=== PATIENT | female | born 1935 | race Caucasian/White ===

== ENCOUNTER 2018-09-21 15:14 | Outpatient (CLI) | payer MEDICARE ==
--- NOTE | 2018-09-21 17:02 | CT ---
CT ANGIOGRAM THORAX WITH CONTRAST CT ANGIOGRAM ABDOMEN WITH CONTRAST CT PELVIS WITH CONTRAST: 09/21/18 HISTORY: 83-year-old female with diagnosis of dissection of aorta, unspecified portion of aorta, I71.00. No other history available. TECHNIQUE: Following IV injection of Isovue, arterial bolus chasing technique scan was performed from thoracic i nlet to upper sacrum. The echocardiography technologist then noted that the order requested CT angiogram of the pel vis as well as the chest and abdomen. Therefore, delayed scan was performed through the pelvis. Coronal and sagittal 3D MIP reconstructions. COMPARISON: None. FINDINGS: Right pleural effusion occupies approximately 50% volume of the right hemithoracic cavity, with assoc iated severe atelectasis of the right lower lobe. Smaller left pleural effusion occupies approximatel y 15 to 20% volume of the left hemithoracic cavity, including multiple loculated components, and mult ifocal subsegmental atelectasis. There is an aortic stent graft from the ascending aorta that begins approximately 5 cm superior to t he aortic root, is within the entire aortic arch, and in the descending thoracic aorta to the approxi mately T9-10 level. There has been surgical reimplantation of the left common carotid artery at the r ight medial aspect of the proximal ascending aorta, inferior to the stent graft. There is no stenosis at the reimplantation site. Likewise, the right brachiocephalic artery has been reimplanted in the p roximal right medial surface of the ascending aorta, inferior to the reimplantation site of the left common carotid artery. There is no high grade stenosis of the brachiocephalic artery, proximal portio ns of the bilateral common carotid arteries or the right subclavian artery. However, the proximal aspect of the contralateral left subclavian artery has been replaced by prosthe tic devices with no contrast material visualized within the device. There is contrast material in the left subclavian artery distal to this, perhaps from retrograde flow. There is diffuse fusiform ectasia and aneurysmal dilation of many segments of the aorta with the foll owing measurements: Proximal ascending aorta proximal to the endograft: Approximately 3 x 3 cm. Superior ascending aorta with endograft: Approximately 3.5 x 2.5 cm. Aortic arch: 3.2 x 3.7 cm. Proximal descending thoracic aorta: Approximately 3.4 x 3.5 cm. Lower to mid descending thoracic aorta with endograft: 4 x 3.8 cm. Lower descending thoracic aorta distal to the endograft: 3.4 x 3.7 cm. Thoracoabdominal junction at T12-L1 level: 3.7 x 4 cm. Proximal abdominal aorta at level of celiac artery: 2.9 x 2.9 cm. Proximal abdominal aorta at level of origin of right renal artery (which arises from the anterior asp ect of the aorta): 3.3 x 3.1 cm. Mid abdominal aorta at L2-3 level: 2.7 x 2.2 cm. Distal abdominal aorta at bifurcation: 1.5 x 1.7 cm. The diameters given above are of the contrast filled, patent luminal portions. The diameters to not i nclude the severe mural thickening throughout the aortic arch, with heterogeneously moderately low at tenuation. There is also a small portion of the lower thoracic aorta that has chronic mural thrombus. There is no intimal flap within the aorta at any level. No significant stenosis of the origins of the right renal artery, celiac artery, or superior mesenter ic artery, and no significant stenosis of the bilateral common iliac, external iliac, or internal prudence ac arteries. Atherosclerotic plaque causes moderate stenosis at origin of the left renal artery. Cardiomegaly and small pericardial effusion. Multiple mildly enlarged mediastinal lymph nodes. No hyd ronephrosis. Diffuse mural thickening and mural enhancement of a nondistended gallbladder, nonspecifi c. Liver, bilateral kidneys, pancreas, spleen, and adrenals, demonstrate no major pathology. No free fluid identified within the pelvic cavity. No small bowel dilation. No signs of colonic diverticuliti s. Much of the intrapelvic contents, including much of the bladder, obscured by severe streak artifac t from bilateral metallic total hip replacement hardware. Diffuse mild to moderate anasarca throughout the subcutaneous fat. IMPRESSION: 1. Fusiform aneurysmal dilation of the aorta, including proximal abdominal aorta, aortic arch, a nd especially descending thoracic aorta. 2. Much of the thoracic aorta has been treated with an endograft. 3. No aortic intimal dissection. 4. Diffuse, severe mural thickening of the aortic arch. It is uncertain whether this represents intramural hematoma or excluded component of the aneurysmal lumen that now has chronic thrombus. 5. Large right pleural effusion and small (partially loculated) left pleural effusion. 6. Severe atelectasis of right lower lobe. 7. Cardiomegaly and pericardial effusion. 8. Bilateral total hip replacement arthroplasty. 9. Surgical reimplantation of the origins of the left common carotid artery and brachiocephalic artery. 10. Ligation of proximal aspect of the left subclavian artery, with replacement by prosthetic de vice. POS: [facility]
== END 2018-09-21 15:15 | disposition home or self-care (01) ==
LOC: CT 15:14
PROVIDERS: ATTEND Family Medicine
DX: I71.00 Dissection of unspecified site of aorta (principal); J90 Pleural effusion, not elsewhere classified; J98.11 Atelectasis; I51.7 Cardiomegaly; I31.3 Pericardial effusion (noninflammatory); Z96.643 Presence of artificial hip joint, bilateral; Z98.890 Other specified postprocedural states
CPT/HCPCS: 71275; 82565

== ENCOUNTER 2018-09-22 19:25 | Emergency (ER) | payer MEDICARE, OTHER ==
[2018-09-22 20:40] LABS: Bilirubin Negative (Negative); Blood, Urine Moderate (Negative); Clarity CLOUDY (Clear); Glucose, Urine (Dipstick) Negative (Negative); Leukocyte Large (Negative); Nitrite Negative (Negative); Protein, Urine (Dipstick) 100 mg/dL (Neg-Trace)
[2018-09-22 20:42] LABS: Bacteria/HPF 4+ HPF (None Seen); Hyaline Casts/LPF 0-3 HYALINE CAST LPF (0-3 Hyaline); Pathc Cast-AUWi Flag 0.14 (0-2.49); RBC/HPF GREATER THAN 50-TNTC HPF (0-3); Squamous Epithelial None Seen HPF (0-3)
[2018-09-22 21:57] LABS: #Basophils 0.1 thou/uL (0.0-0.2); #Eosinphils 0.2 thou/uL (0.0-0.7); #Lymphocytes 1.5 thou/uL (1.20-3.40); #Monocytes 0.6 thou/uL (0.11-0.59); #Neutrophils 5.1 thou/uL (1.40-6.50); %Basophils 0.7 % (0.0-1.0); %Eosinophils 2.2 % (0.0-10.0); %Lymphocytes 20.8 % (21.0-51.0); %Monocytes 7.7 % (0.0-10.0); %Neutrophils 68.6 % (42.0-75.0); Hemoglobin 9.8 g/dL (12.0-16.0); Mean Corpuscular Hemoglobin 29.5 pg (27.0-31.0); Mean Corpuscular Volume 95.4 fL (78.0-98.0); Mean Platelet Volume 7.1 fL (7.4-10.4); Platelet Count 396 thou/uL (130-400); RBC Distribution Width 15.8 % (11.5-14.5); White Blood Cell (WBC) Count 7.4 thou/uL (4.8-10.8)
[2018-09-22 22:03] LABS: INR-International Normal Ratio 1.8; Prothrombin Time 20.5 SEC (12.0-14.7)
--- NOTE | 2018-09-22 22:05 | RAD ---
LEFT TIBIA AND FIBULA TWO VIEW 09/22/18 HISTORY: Pain COMPARISON: None. FINDINGS: The bones are demineralized. Mild soft tissue swelling. No acute displaced fracture or malalignment. IMPRESSION: Soft tissue swelling without displaced fracture or malalignment. POS: ANA LILIA
[2018-09-22 22:19] LABS: ALT (SGPT) 11 U/L (8-55); AST (SGOT) 18 U/L (5-34); Albumin 3.3 g/dL (3.4-4.8); Alkaline Phosphatase 111 U/L (40-150); Anion Gap 14 mmol/L (10-20); BUN (Urea Nitrogen) 12 mg/dL (9.8-20.1); Bilirubin, Total 1.2 mg/dL (0.2-1.2); Calc. Creatinine Clearance 0 mL/min (70-130); Carbon Dioxide 30 mmol/L (23-31); Chloride 101 mmol/L (98-107); Estimated GFR-MDRD Greater than 90; Globulin 3.7 g/dL (2.4-3.5); Glucose 100 mg/dL (83-110); Potassium 3.6 mmol/L (3.5-5.1); Sodium 141 mmol/L (136-145)
--- NOTE | 2018-09-22 22:59 | ULT ---
LEFT LOWER EXTREMITY VENOUS DOPPLER 09/22/18 HISTORY: Bruising, swelling, and edema. COMPARISON: None. TECHNIQUE: Real time vitale scale, color doppler with spectral analysis of the left lower extremity venous system was performed. The common femoral, femoral, proximal portions of the greater saphenous and deep femo ral veins as well as the popliteal and posterior tibial veins were interrogated. Normal flow, augmentation, and compression. Mild lower extremity edema. IMPRESSION: No deep venous thrombosis. POS: ANA LILIA
== END 2018-09-23 02:24 | disposition home or self-care (01) ==
LOC: ERS 19:25
DX: N39.0 Urinary tract infection, site not specified (principal); J90 Pleural effusion, not elsewhere classified; I10 Essential (primary) hypertension; Z79.899 Other long term (current) drug therapy; Z79.82 Long term (current) use of aspirin
CPT/HCPCS: 36415; 51701; 80053; 81003; 81015; 85025; 85610; 85730; 87077; 87086; 87186; A4353

== ENCOUNTER 2018-11-09 13:08 | Inpatient (IN) | payer MEDICARE, OTHER ==
[2018-11-09 13:49] LABS: #Eosinphils 0.1 thou/uL (0.0-0.7); #Lymphocytes 1.3 thou/uL (1.20-3.40); #Monocytes 0.5 thou/uL (0.11-0.59); #Neutrophils 4.5 thou/uL (1.40-6.50); %Basophils 0.5 % (0.0-1.0); %Eosinophils 1.5 % (0.0-10.0); %Monocytes 7.8 % (0.0-10.0); %Neutrophils 70.3 % (42.0-75.0); Hemoglobin 10.7 g/dL (12.0-16.0); Mean Corpuscular HGB CONC 30.8 g/dL (32.0-36.0); Mean Corpuscular Hemoglobin 28.6 pg (27.0-31.0); Mean Corpuscular Volume 92.7 fL (78.0-98.0); Mean Platelet Volume 8.5 fL (7.4-10.4); Platelet Count 219 thou/uL (130-400); RBC Distribution Width 17.4 % (11.5-14.5); Red Blood Cell (RBC) Count 3.73 mill/uL (4.20-5.40); White Blood Cell (WBC) Count 6.3 thou/uL (4.8-10.8)
[2018-11-09 14:13] LABS: AST (SGOT) 38 U/L (5-34); Albumin 3.7 g/dL (3.4-4.8); Alkaline Phosphatase 107 U/L (40-150); Anion Gap 14 mmol/L (10-20); BUN (Urea Nitrogen) 22 mg/dL (9.8-20.1); Bilirubin, Total 0.6 mg/dL (0.2-1.2); Calc. Creatinine Clearance 0 mL/min (70-130); Calcium 8.9 mg/dL (7.8-10.44); Carbon Dioxide 23 mmol/L (23-31); Chloride 110 mmol/L (98-107); Estimated GFR-MDRD 67; Globulin 3.4 g/dL (2.4-3.5); Glucose 146 mg/dL (83-110); Potassium 3.6 mmol/L (3.5-5.1); Protein, Total 7.1 g/dL (6.0-8.3); Sodium 143 mmol/L (136-145)
--- NOTE | 2018-11-09 14:16 | RAD ---
AP view chest. HISTORY: Dyspnea. AP view chest demonstrates a large aortic endovascular stent graft. Sternotomy wires seen. Superior sternal plates and screws are in place. Cardiomegaly seen. Pulmonary vascular congestion seen. IMPRESSION: Cardiomegaly.
[2018-11-09 14:28] LABS: ALT (SGPT) 52 U/L (8-55)
[2018-11-09] MEDS ORDERED: Furosemide 20 MG/2 ML VIAL ONE ×2 (14:33→18:48)
[2018-11-09 17:17] LABS: Troponin I 0.026 ng/mL (< 0.028)
[2018-11-09] MEDS ORDERED: Furosemide 20 MG/2 ML VIAL SLOW IVP SCH (18:45)
--- NOTE | 2018-11-09 19:47 | HP ---
CHIEF COMPLAINT: Worsening shortness of breath and weakness. HISTORY OF PRESENT ILLNESS: An 83-year-old female with past medical history significant for hypertension; aortic aneurysm, status post repair; and coronary artery disease, status post stent placement, who was brought in by EMS due to worsening shortness of breath. The patient also reported the patient has been having worsening weakness associated with intermittent confusion and falls. The patient reportedly was found to have aortic aneurysm when she presented to the emergency room here on July 27 and was found to have aortic aneurysm and was subsequently transferred to [facility] in [place], where she had repair of both ascending and descending aortic aneurysms as well as had coronary angio with stent placement. The patient has prolonged hospitalization associated with physical deconditioning and was subsequently discharged to a [facility] where she has been from September 01 up until October 28, when she was discharged to home. Since discharged to home, the patient was seen at [facility] about a week ago for worsening shortness of breath and was diagnosed with congestive heart failure and discharged to home with medication. Due to worsening shortness of breath and confusion as well as falls, the patient was brought in. EMS treated the patient with bronchodilators with improvement. Of note, the patient reportedly had developed mental status change and confusion while in the halfway and this has continued, though has improved, but reportedly got worse in the last few days. She was treated for urinary tract infection at [facility] with IV antibiotics, which was continued at [place]. The patient also had another bout of urinary tract infection while at the halfway for which she was seen by a urologist. The patient denied chest pain, cough, nausea, vomiting, dizziness, abdominal pain, dysuria, hematuria, hematemesis, or change in bowel habit. She reported that the leg swelling has markedly improved. Note that the patient's daughter reported that earlier this morning she was confused, calling family members with inappropriate speech. Mental status is said to have improved since presentation to the hospital. There is no history of change in vision or slurred speech or focal weakness. PAST MEDICAL HISTORY: 1. Aortic aneurysm. 2. Hypertension. 3. Superficial thrombosis of right upper limb. 4. Physical deconditioning. 5. Pleural effusion, status post thoracentesis. 6. Rheumatoid arthritis, on methotrexate. PAST SURGICAL HISTORY: 1. Repair of aortic aneurysm with implants. 2. Bilateral hip and knee replacements. FAMILY HISTORY: Hypertension in mother. SOCIAL HISTORY: The patient now lives with the one of the daughters. Was recently discharged from the [facility] facility about 1 week ago. Denied smoking or alcohol use. ALLERGIES: NO KNOWN DRUG ALLERGIES REPORTED. CURRENT HOME MEDICATIONS: Discharge paperwork from [facility] on November 02, showed the following medications: 1. Aspirin 81 mg p.o. daily. 2. Carvedilol 6.25 mg p.o. b.i.d. 3. Furosemide 20 mg p.o. daily. 4. Losartan 25 mg p.o. daily. 5. Magnesium oxide 400 mg p.o. daily. 6. Acetaminophen 500 mg every 6 hours p.r.n. for pain. 7. Alendronate 70 mg p.o. every 7 days. 8. Folic acid one tablet p.o. daily. 9. Methotrexate 12.5 mg p.o. every 7 days. 10. Potassium chloride one tablet p.o. daily. 11. Zolpidem 5 to 10 mg p.o. daily at night as needed for sleep. Review of discharge paperwork from [facility] showed that the patient also was on; 1. Amiodarone 200 mg p.o. b.i.d. 2. Lipitor 40 mg daily at bedtime. 3. Gabapentin 300 mg every 8 hours. 4. Melatonin 3 mg daily at bedtime for insomnia. 5. Eliquis 5 mg p.o. b.i.d. 6. Restasis emulsion 0.05% to both eyes two times a day. REVIEW OF SYSTEMS: A 12-point review of systems performed was negative other than pertinent positives and negatives included in the History of Present Illness. PHYSICAL EXAMINATION: VITAL SIGNS: On presentation to the emergency room, the patient had the following vitals, blood pressure 175/59, pulse 49, respiratory rate 16, and SpO2 of 99% on room air. Most current vitals showed blood pressure 135/62, pulse 51, respiratory rate 18, temperature 97.8, and SpO2 of 98% on room air. GENERAL: Elderly female, in no obvious distress. Afebrile. Anicteric. Acyanotic. HEENT: Normocephalic, atraumatic. Pupils are equal and reacting to light. Oral mucosa is moist. NECK: Supple, nontender with full range of motion. No JVD appreciated. CARDIOVASCULAR: Regular rhythm and rate with normal heart sounds 1 and 2. Systolic murmur appreciated over the precordium. RESPIRATORY: Fair air entry bilaterally with bibasilar crackles noted. No rhonchi or use of accessory muscles was appreciated. GI: Abdomen is full, soft, nontender, nondistended with normal bowel sounds. EXTREMITIES: Grossly normal looking except left forearm wound with scab. Mild bilateral leg edema noted. No erythema appreciated. NEUROLOGIC: Conscious and alert, oriented x3 with appropriate mental status. The patient moves all extremities. Cranial nerves 2 through 12 are intact. The patient is conversational. Some memory lapses were appreciated. DIAGNOSTIC DATA: CBC showed WBC count of 6.3, hemoglobin of 10.7, MCV of 92.7, and platelets of 219. CMP showed sodium 143, potassium 3.6, chloride 110, CO2 of 23, BUN 22, creatinine 0.82, glucose 146, calcium 8.9, total bilirubin 0.6, AST 38, ALT 52, alkaline phosphatase 107, total protein 7.1, albumin 3.7, and globulin 3.4. Serial troponin performed 3 hours apart was stable at 0.026. BNP was 2811.7. EKG showed sinus bradycardia with rate of 47. T-wave inversion in leads II, III, aVL, and V2 through V6 noted. No obvious ST changes noted. Chest x-ray showed large aortic endovascular stent graft as well as sternotomy wires. Cardiomegaly and pulmonary vascular congestion also were noted. ASSESSMENT: 1. Acute respiratory insufficiency: Due to acute on chronic systolic congestive heart failure. 2. Acute on chronic congestive heart failure. Type of heart dysfunction is unclear at this time. There is no prior echocardiogram in record. 3. Ruptured aortic aneurysm, status post repair. 4. Acute encephalopathy: Etiology is unclear. Urinary tract infection is a concern. The patient is said to be on several medications which may be contributed. Acute myocardial infarction is unlikely with negative serial troponin. 5. Physical deconditioning with recurrent falls. 6. Hypertension: Control is fair with systolic blood pressure ranging from 130 to 170. 7. Possible cardiac arrhythmia. Review of the medical record showed no cardiac arrhythmia, but the patient is supposed to be on amiodarone. Indication is unclear at this time. 8. History of venous thrombosis, on chronic anticoagulation with Eliquis. Review of the chart showed that the patient had acute embolism and thrombosis of superficial vein of right upper extremity. This would not be an indication for chronic anticoagulation. PLAN: 1. We will continue home medications of Coreg at a lower dose given bradycardia as well as losartan. We will, however, increase losartan to 25 mg b.i.d. to get better BP control. 2. We will also start the patient on IV Lasix, given fluid overload and elevated BNP. 3. We will get echocardiogram to assess cardiac function. 4. We will also get medical record from [facility] in [place]. We will also get urinalysis to rule out acute UTI. 5. We will also consult Physical and Occupational Therapy to evaluate and treat the patient. 6. DVT prophylaxis with Lovenox will be provided. 7. Code status is full code. Daughter is the surrogate decision maker. Job ID: [id number]
[2018-11-09 20:47] LABS: Troponin I 0.033 ng/mL (< 0.028)
[2018-11-09] MEDS: Losartan 25 MG TAB PO SCH (21:26)
[2018-11-09] MEDS: Carvedilol 3.125 MG TAB PO SCH (21:26)
[2018-11-09 22:15] LABS: Bilirubin Negative (Negative); Blood, Urine Small (Negative); Clarity TURBID (Clear); Glucose, Urine (Dipstick) Negative (Negative); Leukocyte Negative (Negative); Nitrite Negative (Negative); Protein, Urine (Dipstick) Negative (Neg-Trace); Specific Gravity, Urine 1.008 (1.002-1.036); Urobilinogen 0.2 mg/dL (0.2-1.0); pH, Urine 6.5 (5.0-9.0)
[2018-11-09 22:18] LABS: Bacteria/HPF None Seen HPF (None Seen); Hyaline Casts/LPF 0-3 HYALINE CAST LPF (0-3 Hyaline); Pathc Cast-AUWi Flag 0.13 (0-2.49); RBC/HPF None Seen HPF (0-3); Squamous Epithelial None Seen HPF (0-3); WBC/HPF 0-3 HPF (0-3)
[2018-11-09 22:19] LABS: Urine Culture Reflex No No
[2018-11-10] MEDS: Zolpidem Tartrate 5 MG TAB PO PRN ×2 (00:27→21:16)
[2018-11-10] MEDS: Furosemide 20 MG/2 ML VIAL SLOW IVP SCH ×2 (06:30→14:49)
[2018-11-10 07:11] LABS: #Eosinphils 0.2 thou/uL (0.0-0.7); #Lymphocytes 1.5 thou/uL (1.20-3.40); #Monocytes 0.8 thou/uL (0.11-0.59); #Neutrophils 4.5 thou/uL (1.40-6.50); %Basophils 0.6 % (0.0-1.0); %Eosinophils 2.2 % (0.0-10.0); %Lymphocytes 22.1 % (21.0-51.0); %Monocytes 11.4 % (0.0-10.0); %Neutrophils 63.6 % (42.0-75.0); Hemoglobin 10.6 g/dL (12.0-16.0); Mean Corpuscular HGB CONC 31.6 g/dL (32.0-36.0); Mean Corpuscular Hemoglobin 29.7 pg (27.0-31.0); Mean Corpuscular Volume 94.1 fL (78.0-98.0); Mean Platelet Volume 8.8 fL (7.4-10.4); Platelet Count 210 thou/uL (130-400); RBC Distribution Width 17.5 % (11.5-14.5); Red Blood Cell (RBC) Count 3.57 mill/uL (4.20-5.40)
[2018-11-10 07:35] LABS: ALT (SGPT) 44 U/L (8-55); AST (SGOT) 35 U/L (5-34); Albumin 3.3 g/dL (3.4-4.8); Alkaline Phosphatase 97 U/L (40-150); Anion Gap 12 mmol/L (10-20); BUN (Urea Nitrogen) 23 mg/dL (9.8-20.1); Bilirubin, Total 0.5 mg/dL (0.2-1.2); Calc. Creatinine Clearance 45 mL/min (70-130); Calcium 8.5 mg/dL (7.8-10.44); Carbon Dioxide 26 mmol/L (23-31); Chloride 108 mmol/L (98-107); Estimated GFR-MDRD 62; Globulin 3.3 g/dL (2.4-3.5); Glucose 102 mg/dL (83-110); Magnesium 1.7 mg/dL (1.6-2.6); Potassium 3.2 mmol/L (3.5-5.1); Protein, Total 6.6 g/dL (6.0-8.3); Sodium 143 mmol/L (136-145)
[2018-11-10] MEDS ORDERED: hydrALAZINE 20 MG/ML VIAL SLOW IVP SCH (08:00)
[2018-11-10] MEDS ORDERED: Amiodarone 200 MG TAB PO SCH (09:00)
--- NOTE | 2018-11-10 09:43 | PDOC.PN ---
- Subjective Encounter Start Date: 11/10/18 Encounter Start Time: 09:42 Subjective: Feeling better. -: Denied fever or SOB. - Objective Resuscitation Status - Order Detail: 11/09/18 18:38 Resuscitation Status Routine Resuscitation Status: FULL: Full Resuscitation Vital Signs & Weight: Vital Signs (12 hours) Temp Pulse Resp BP Pulse Ox 11/10/18 08:03 97.9 F 56 L 18 177/76 H 96 11/10/18 03:29 98.6 F 54 L 16 122/59 L 92 L 11/10/18 00:13 92 L 11/09/18 23:45 92 L Weight Weight 124 lb 6.4 oz I&O: 11/09/18 11/10/18 11/11/18 06:59 06:59 06:59 Intake Total 150 Output Total 650 Balance -500 Result Diagrams: 11/10/18 06:14 11/10/18 06:14 Phys Exam - Physical Examination Constitutional: NAD HEENT: PERRLA, moist MMs Neck: no JVD, supple Respiratory: no wheezing, no rales fair air entry bilaterally with some transmitted sound. Cardiovascular: RRR systolic murmur noted Gastrointestinal: soft, non-tender, no distention, positive bowel sounds trace bilateral leg edema Neurological: non-focal, moves all 4 limbs conscious and alert, orientred x 3 Psychiatric: A&O x 3 Dx/Plan (1) Acute on chronic congestive heart failure Code(s): I50.9 - HEART FAILURE, UNSPECIFIED Status: Acute (2) HTN (hypertension) Code(s): I10 - ESSENTIAL (PRIMARY) HYPERTENSION Status: Acute Comment: Type of dysfunction unkown. Awaiting echo (3) Aortic aneurysm Code(s): I71.9 - AORTIC ANEURYSM OF UNSPECIFIED SITE, WITHOUT RUPTURE Status: Acute (4) Physical deconditioning Code(s): R53.81 - OTHER MALAISE Status: Acute - Plan Continue diuretic and antihypertensives. -: Monitor renal function, I/O and electrolytes. -: Awaiting Echo and cardiology input. -: PT/OT eval and treat * .
[2018-11-10] MEDS: Potassium Chloride 20 MEQ TAB PO SCH ×2 (09:45→14:49)
[2018-11-10] MEDS: Magnesium Oxide 400 MG TAB PO SCH ×2 (09:46→21:15)
[2018-11-10] MEDS: Losartan 25 MG TAB PO SCH ×2 (09:46→21:15)
[2018-11-10] MEDS: Apixaban 5 MG TAB PO SCH ×2 (09:46→21:15)
[2018-11-10] MEDS: Carvedilol 3.125 MG TAB PO SCH ×2 (09:46→21:16)
[2018-11-10 12:13] LABS: Troponin I 0.047 ng/mL (< 0.028)
--- NOTE | 2018-11-10 12:42 | PQF ---
CLINICAL DOCUMENTATION IMPROVEMENT CLARIFICATION FORM: ICD-10 Updated PLEASE DO AN ADDENDUM TO THE PROGRESS NOTE WITH ANY DOCUMENTATION UPDATES OR ADDITIONS AND CARRY THROUGH TO DC SUMMARY. THANK YOU. DATE: 11/10/18 ATTN: DR. HOLLAND Please exercise your independent, professional judgment in responding to the clarification form. Clinical indicators are provided on the bottom of this form for your review Please check appropriate box(s): [ x ] Encephalopathy: Type: [ ] Acute [ ] Subacute [ x ] Chronic Etiology: [ ] Hypertensive [ ] Metabolic [ ] Toxic [ ] Hepatic with Coma [ ] Hepatic w/o Coma [ ] Hypoxic [ ] Septic Etiology is unclear. [ ] Drug induced: [ ] Unspecified [ ] in the setting of underlying dementia [ ] Other (please specify) [ ] Transient Alteration of Awareness [ ] Other diagnosis [ ] Unable to determine In addition, please specify: Present on Admission (POA): [ x ] Yes [ ] No [ ] Unable to determine For continuity of documentation, please document condition throughout progress notes and discharge summary. Thank You. 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 All Rights Reserved [email or web address] Office: [phone] [facility]
--- NOTE | 2018-11-10 16:52 | CON ---
DATE OF CONSULTATION: 11/10/2018 REASON FOR CONSULTATION: Bradycardia, QTc prolongation. HISTORY OF PRESENT ILLNESS: Ms. Orozco is an 83-year-old woman, who presented to [facility] on 11/09 due to shortness of breath, confusion, as well as weakness. There was some mention of falls, but when the patient tried to get out of bed, she was too weak to support herself and slid to the ground. Reportedly, she also had some mental status changes with confusion over the past few days, had been progressive. Ms. Orozco was admitted to [facility] at the end of July in 2017 and found to have an aortic aneurysm, for which she was transferred to [facility] in [place], where she underwent both ascending and descending aortic aneurysmal repair. There is also some mention of left heart catheterization with possible stent placement. Records have been requested from [facility], though are not available on the chart at this point for review. Following her hospitalization there, she was discharged on amiodarone and Eliquis and was sent to senior living facility, where she remained until October 28. She was discharged home at that time, but began to have congestive heart failure issues and went to [facility] for CHF exacerbation last week, but was not hospitalized long with that stay. She also endorses that she has had recurrent issues with urinary tract infections. Her urine continues to show a bacteria, but she is asymptomatic and treatment has been deferred unless further symptoms are seen per her urologist. Ms. Orozco is currently feeling fairly well. Her mental status has improved since initial presentation. She has not showing any focal deficits, stroke, or stroke-like symptoms. She is a poor historian as far as her health history goes. She denies any heart racing, palpitations, chest pain, pressure, syncope, near syncope, stroke, or stroke-like symptoms. REVIEW OF SYSTEMS: A 12-point review of systems is conducted, is negative except that listed above in HPI. PAST MEDICAL HISTORY: 1. Aortic aneurysm, status post repair, ascending and descending. 2. Hypertension. 3. Deconditioning and frail status. 4. Pleural effusions, status post thoracentesis. 5. Rheumatoid arthritis, on methotrexate. 6. Bilateral hip and knee replacements. FAMILY HISTORY: Hypertension in mother. SOCIAL HISTORY: Lives with her daughter, one of her daughters recently discharged from SNF approximately 2 weeks ago. Denies alcohol, tobacco, or illicit drug use. ALLERGIES: NO KNOWN DRUG ALLERGIES. HOME MEDICATIONS: 1. Methotrexate weekly 12.5 mg. 2. Losartan potassium 25 mg daily. 3. Fosamax 70 mg weekly. 4. Magnesium 400 mg p.o. daily. 5. Carvedilol 6.25 mg p.o. b.i.d. 6. Simethicone as needed. 7. Potassium chloride 10 mEq daily. 8. Megace 40 mg daily. 9. Zolpidem 5 mg at bedtime. 10. Melatonin as needed. 11. Gabapentin 300 mg p.o. t.i.d. 12. Furosemide 20 mg daily. 13. Restasis per eye b.i.d. 14. Atorvastatin 40 mg at bedtime. 15. Aspirin 81 mg p.o. daily. 16. Apixaban 5 mg p.o. b.i.d. 17. Amiodarone 200 mg p.o. b.i.d. 18. Tylenol No. 3 one to two tablets p.o. q.6 hours p.r.n. pain. PHYSICAL EXAMINATION: VITAL SIGNS: Temperature 97.6, pulse 54, blood pressure 133/61, respirations 18, and oxygen is 96% on 2 L via nasal cannula. GENERAL: The patient is alert and oriented. Speech is clear. Affect is appropriate. She is a poor historian. HEENT: She is normocephalic and atraumatic. Sclerae anicteric. EOMs are intact. Oral mucosa is moist and pink with adequate dentition. NECK: Supple without jugular venous distention. HEART: Rate is slow, but with crisp S1 and S2. PMI is nondisplaced. LUNGS: Clear to auscultation bilaterally. Respirations even and nonlabored. ABDOMEN: Soft and nontender. Hepatojugular reflux is negative. EXTREMITIES: Warm and dry to touch without clubbing, cyanosis, or edema. NEUROLOGIC: Grossly intact and nonfocal. Gait was not assessed, but the patient reports being out of bed multiple times today. DATABASE: WBC 7.0, hemoglobin 10.6, hematocrit 33.6, platelet count 210. Chemistry; potassium 3.2, creatinine 0.88. BNP 1166. Serial troponins are being conducted initially 0.026 continue to climb, highest one is 0.047. Magnesium 1.7. Telemetry and EKGs were all personally reviewed and currently reflect sinus bradycardia with QTc prolongation. QT interval is 604 milliseconds on admitting EKG. IMPRESSION: 1. Bradycardia with QT prolongation, but no ventricular tachycardia. 2. Chronic amiodarone use at moderately high dose, unknown reason for initiation, but likely perioperative management of atrial fibrillation with her hospital stay at [facility]. Need records from [facility] to confirm or deny this. 3. Generalized weakness with mental status changes, possibly secondary to amiodarone use. 4. History of recent aortic aneurysm repair. 5. Oral anticoagulation on Eliquis without bleeding dyscrasias. 6. CHADS-VASc score of greater than or equal to 4 on the basis of advanced age, female gender, and vascular disease. PLAN AND RECOMMENDATIONS: At this point, the most likely story is Ms. Orozco had perioperative atrial fibrillation, undergoing repair of her aortic aneurysm at [facility]. It has been over 3 months since the date of her surgical repair, which is an appropriate time frame to consider discontinuing amiodarone, especially in light of her bradycardia and QT prolongation. I will stop her amiodarone, which will also help improve her heart rate, but we will need to monitor for recurrent arrhythmias and I will see her back as an outpatient followup for potential arrhythmia issues. We will look for the [facility] records, which may provide some clarity as to when and why she was started on amiodarone. Recommend continuing oral anticoagulation with Eliquis. She is not sure when this medication was started or how long she has been on this and truly does not know why she is on this medication. I agree with the plan to check a 2-dimensional echo and recommend medical management optimization of her heart failure. Thank you for allowing me to participate in the care of this patient. Job ID: [id number]
--- NOTE | 2018-11-10 17:59 | CON ---
DATE OF CONSULTATION: 11/10/2018 INDICATION FOR CONSULTATION: An 83-year-old female with congestive heart failure symptoms, history of coronary artery disease, recent bypass surgery and also was found to have on the EKG, prolonged QT. She has had no arrhythmias that we are aware of. No ventricular tachycardia or torsades. At this time, she denied any chest pain. She mainly complains of shortness of breath and that is why she was admitted to the hospital. She has also had some mild lower extremity edema. PAST MEDICAL HISTORY: Significant for aortic aneurysm. She has had a repair apparently. She has history of coronary artery disease. She says she underwent bypass surgery, but may not have bypass. May have had a thoracic aneurysm. We will need to evaluate that. She has had a stent placement. She is having associated weakness and also shortness of breath at home. She has had a repair of both ascending and descending aortic aneurysms and stent placement to the coronary arteries apparently. Do not see any indication that she has had any bypass surgery. She does appear to be somewhat deconditioned obviously and this appears to be maintaining normally, but is somewhat slow. She says she is feeling much better since she is diuresed. She apparently has had some urinary tract infections also. She has been followed by the neurologist. At this time, she denies any chest pain. She mainly complains of shortness of breath. She had no other significant complaints from a cardiac standpoint. Her past medical history is significant for the coronary artery disease with stent placement. She has had superficial thrombosis of right upper extremities. She has also had some local wound on the left extremity after an IV was placed. She has aortic aneurysm repaired, both thoracic and abdominal. History of hypertension. She has had thoracentesis in the past with pleural effusion. She has arthritis. She has also had bilateral hip and knee replacement. She has had a hysterectomy. SOCIAL HISTORY: She is a . She apparently lives with one of her daughters. She was recently in the custodial unit after her surgical repairs. She is now living with a daughter. She has no history of alcohol or tobacco abuse. FAMILY HISTORY: Noncontributory for any early heart disease. ALLERGIES: NONE. MEDICATIONS: Include: 1. Coreg 6.25 mg b.i.d. 2. Aspirin 81 mg a day. 3. Furosemide 20 mg a day. 4. Losartan 20 mg a day. 5. Magnesium oxide 400 mg daily. 6. Tylenol. 7. Alendronate 70 mg once a week. 8. Folic acid once a day. 9. Methotrexate q.7 hours. 10. Potassium 1 tablet daily. 11. Zolpidem. 12. Amiodarone 200 mg b.i.d. 13. Lipitor 40 mg q.p.m. 14. Gabapentin 300 q.8 hours. 15. Melatonin 3 mg q.p.m. 16. Eliquis 5 mg b.i.d. 17. Restasis ophthalmic drops. REVIEW OF SYSTEMS: She mainly complains of shortness of breath and some lower extremity edema. Otherwise, she had no new significant complaints. PHYSICAL EXAMINATION: GENERAL: Reveals an elderly female, who is in no acute distress. She does complain of some back pain. VITAL SIGNS: Show a blood pressure 133/61, heart rates in the 50s. She has a sinus rhythm on the monitor. She is afebrile. Respiratory rate is 18 to 28, O2 saturation is 96%. HEENT: Reveals the head to be normocephalic and atraumatic. Carotid pulses are present. I do not hear any bruits. CHEST: Clear to auscultation at this time. She has a well-healed midline surgical incision. She has abdominal incision also. There were no rales, rhonchi, or wheezing noted. CARDIOVASCULAR: Reveals a regular rhythm. I did not hear any gross murmurs. No heaves or thrills. ABDOMEN: Soft. Positive bowel sounds are present. She has a well-healed surgical incision. EXTREMITIES: Showed no clubbing or cyanosis. Pedal pulses are present. NEUROLOGIC: The patient appears to be relatively intact. She is overall somewhat deconditioned. SKIN: Warm and dry. She does have a healing ulceration of the left forearm. Neurologically, no gross focal deficits are noted. SKIN: Warm and dry otherwise. LABORATORY DATA: Her EKG did show evidence of sinus bradycardia with a long QT, but still within borderline limits for the heart rate. She is bradycardic, which may be due to the amiodarone which also can prolong her QT. I will need to evaluate medicines, maybe we can consider whether or not the gabapentin maybe in combination with amiodarone, maybe prolonging the QT. We could also evaluate for the zolpidem, which may also prolong QT. I will need to investigate that to be certain. Otherwise, she has been asymptomatic. There is no indication she has any arrhythmias. Her hemoglobin is 10.6, WBC of 7, hematocrit 33.6, and platelet count 210. Her chemistry shows potassium of 3.2. Her creatinine is 0.88. Troponin I was indeterminate at 0.026 and then the last set was 0.033, still not indicative of myocardial infarction. BNP was elevated at 2811, compatible with congestive heart failure. This is already decreased after 24 hours down to 1166. IMPRESSION: 1. Congestive heart failure, most likely due to volume overload. This has improved after she has been given diuretics. I would continue with low-dose diuretics at this time. She does not appear to be too volume overloaded. We will need to try to obtain records from [place] or to try to see if she has had any recent echocardiogram. If not, then I would suggest an echocardiogram to be performed. I believe one has already been ordered and we will evaluate that. Otherwise, we will continue to follow her very carefully. 2. Abnormal EKG with borderline to long QT syndrome. She is asymptomatic and there has been no significant arrhythmias noted at this time. We can discuss this issue with the production technician. We will compare with an old EKG. At this time, I would not change any medications at this time. I suspect she did have some atrial fibrillation after surgery in the past and that is why she was placed on the amiodarone. 3. Hypertension, this is under reasonable control. At this time, we will continue the same medications. We will continue to follow the patient with you. 4. Overall deconditioning. She will need to have physical therapy or home health when she is discharged from the hospital. We will be more than happy to continue to follow the patient with you. Job ID: [id number]
[2018-11-10] MEDS: Atorvastatin Calcium 40 MG TAB PO SCH (21:15)
[2018-11-11] MEDS ORDERED: hydrALAZINE 20 MG/ML VIAL SLOW IVP SCH (04:00)
[2018-11-11 05:33] LABS: Albumin 3.6 g/dL (3.4-4.8); Anion Gap 13 mmol/L (10-20); BUN (Urea Nitrogen) 22 mg/dL (9.8-20.1); BUN/Creatinine Ratio 30.14; Calc. Creatinine Clearance 55 mL/min (70-130); Calcium 9.3 mg/dL (7.8-10.44); Carbon Dioxide 24 mmol/L (23-31); Chloride 109 mmol/L (98-107); Estimated GFR-MDRD 77; Glucose 99 mg/dL (83-110); Phosphorus 3.2 mg/dL (2.3-4.7); Potassium 4.2 mmol/L (3.5-5.1); Sodium 142 mmol/L (136-145)
[2018-11-11] MEDS ORDERED: Lorazepam 2 MG/ML VIAL SLOW IVP SCH (05:45)
[2018-11-11] MEDS: Furosemide 20 MG/2 ML VIAL SLOW IVP SCH ×2 (05:50→15:02)
[2018-11-11] MEDS ORDERED: hydrALAZINE 20 MG/ML VIAL SLOW IVP PRN (07:53)
[2018-11-11] MEDS ORDERED: Alendronate Sodium 70 mg Tablet PO SCH (08:30)
[2018-11-11] MEDS ORDERED: Furosemide 20 MG/2 ML VIAL SLOW IVP SCH ×2 (08:30→09:00)
[2018-11-11] MEDS ORDERED: Methotrexate Sodium 2.5 MG TAB PO SCH (08:30)
--- NOTE | 2018-11-11 08:33 | PDOC.PN ---
- Subjective Encounter Start Date: 11/11/18 Encounter Start Time: 08:31 Subjective: Was confused last night associated with hallucination. -: Denied SOB, chest pain, dysuria or fever - Objective Resuscitation Status - Order Detail: 11/09/18 18:38 Resuscitation Status Routine Resuscitation Status: FULL: Full Resuscitation Vital Signs & Weight: Vital Signs (12 hours) Temp Pulse Resp BP BP Pulse Ox 11/11/18 08:04 97.8 F 66 20 136/66 94 L 11/11/18 04:24 65 193/63 H 11/11/18 04:00 98.1 F 61 20 193/85 H 92 L Weight Admit Weight 124 lb 6.4 oz Weight 127 lb 8 oz I&O: 11/10/18 11/11/18 11/12/18 06:59 06:59 06:59 Intake Total 150 980 Output Total 650 1625 Balance -500 -645 Result Diagrams: 11/10/18 06:14 11/11/18 04:47 Phys Exam - Physical Examination Constitutional: NAD HEENT: PERRLA, moist MMs Neck: no JVD, supple, full ROM Respiratory: no wheezing, no rales fair air entry bilaterally Cardiovascular: RRR soft systolic murmur Gastrointestinal: soft, non-tender, no distention, positive bowel sounds trace edema of the legs. Neurological: non-focal, moves all 4 limbs oriented x2 at least. some confusion. Dx/Plan (1) Acute on chronic congestive heart failure Code(s): I50.9 - HEART FAILURE, UNSPECIFIED Status: Acute Qualifiers: Heart failure type: diastolic Qualified Code(s): I50.33 - Acute on chronic diastolic (congestive) heart failure (2) HTN (hypertension) Code(s): I10 - ESSENTIAL (PRIMARY) HYPERTENSION Status: Acute Comment: Control suboptimal. (3) Aortic aneurysm Code(s): I71.9 - AORTIC ANEURYSM OF UNSPECIFIED SITE, WITHOUT RUPTURE Status: Acute (4) Physical deconditioning Code(s): R53.81 - OTHER MALAISE Status: Acute (5) Acute encephalopathy Code(s): G93.40 - ENCEPHALOPATHY, UNSPECIFIED Status: Acute Comment: Etiology unclear. Most likely sundowning. UA unremarkable. Acute CVA is a concern (6) Aortic regurgitation Code(s): I35.1 - NONRHEUMATIC AORTIC (VALVE) INSUFFICIENCY Status: Acute (7) Protein-calorie malnutrition, moderate Code(s): E44.0 - MODERATE PROTEIN-CALORIE MALNUTRITION Status: Acute - Plan Increase losartan to 50 bid. start prn IV hydralazine for acute BP elevatio -: Get CT brain -: Continue diuretic -: Start oral dietary supplement -: Awaiting medical record from [facility]. * .
--- NOTE | 2018-11-11 08:35 | CT ---
Exam: CT brain PROVIDED CLINICAL HISTORY: Mental status change COMPARISON: None FINDINGS: The ventricular system is normal in size and morphology. No evidence for intracranial hemorrhage or mass effect. The extracranial soft tissues and osseous structures demonstrate an unremarkable CT appearance. Chronic microvascular ischemic changes are noted involving the cerebral white matter. IMPRESSION: No evidence for intracranial hemorrhage or mass effect.
[2018-11-11] MEDS: Apixaban 5 MG TAB PO SCH ×2 (10:22→21:48)
[2018-11-11] MEDS: Folic Acid 1 MG TAB PO SCH (10:22)
[2018-11-11] MEDS: Carvedilol 3.125 MG TAB PO SCH ×2 (10:22→21:48)
[2018-11-11] MEDS: Magnesium Oxide 400 MG TAB PO SCH ×2 (10:22→21:49)
[2018-11-11] MEDS: Losartan 25 MG TAB PO SCH ×2 (10:22→21:49)
[2018-11-11] MEDS: Megestrol Acetate 40 MG TAB PO SCH (11:33)
--- NOTE | 2018-11-11 13:41 | PDOC.CTH ---
Cardiology Progress Note - Subjective The pt seen and examined. No overnight events. No cardiac complaints. - Objective Vital Signs Temp Pulse Pulse Pulse Resp BP BP 11/11/18 11:35 97.8 F 64 20 11/11/18 11:04 60 58 L 181/76 H 11/11/18 08:04 97.8 F 66 20 11/11/18 04:24 65 193/63 H 11/11/18 04:00 98.1 F 61 20 BP BP Pulse Ox Pulse Ox 11/11/18 11:35 124/58 L 95 11/11/18 11:04 126/58 L 97 11/11/18 08:04 136/66 94 L 11/11/18 04:24 11/11/18 04:00 193/85 H 92 L Admit Weight 124 lb 6.4 oz Weight 127 lb 8 oz 11/10/18 11/11/18 11/12/18 06:59 06:59 06:59 Intake Total 150 980 Output Total 650 1625 Balance -500 -645 - Physical Examination Neck: no JVD present Lungs: other: (diminished at bases) Heart: RRR Abdomen: soft Extremities: other: (No edema) - Telemetry Telemetry Rhythm: SR - Labs Result Diagrams: 11/10/18 06:14 11/11/18 04:47 Troponin/CKMB Troponin I 0.047 ng/mL (< 0.028) H 11/10/18 06:14 - Assessment/Plan 1. Acute on Chronic Diastolic HF - stable with Lasix, bblocker, and ARB 2. Prolong QT - Amiodarone was stopped; cont. to monitor on tele 3. HTN - stable 4. Post-op Afib - remains in SB/SR; Off Amiodarone 2/2 QT prolongation; cont. Eliquis 5. S/p ascending and descending aortic aneurysm repair in 08/2018 - waiting for med report from [facility]. MAR reviewed Pt. seen and eval. by me. I agree with the A/P by the FRUIT RAISER. Appreciate input by EP. Pt. seems confused this PM. RRR,chest clear. gjm Review of Systems - Review of Systems Constitutional: reports: weakness EENTM: reports: no symptoms reported Respiratory: reports: no symptoms reported Cardiac (ROS): reports: no symptoms reported ABD/GI: reports: no symptoms reported : reports: no symptoms reported Musculoskeletal: reports: no symptoms reported Skin: reports: no symptoms reported
[2018-11-11] MEDS: Atorvastatin Calcium 40 MG TAB PO SCH (21:48)
[2018-11-11] MEDS: Melatonin 3 MG TAB PO PRN (21:49)
[2018-11-12] MEDS: Furosemide 20 MG/2 ML VIAL SLOW IVP SCH (05:43)
[2018-11-12 05:54] LABS: Anion Gap 17 mmol/L (10-20); BUN (Urea Nitrogen) 29 mg/dL (9.8-20.1); BUN/Creatinine Ratio 32.58; Calc. Creatinine Clearance 44 mL/min (70-130); Calcium 9.7 mg/dL (7.8-10.44); Carbon Dioxide 23 mmol/L (23-31); Chloride 105 mmol/L (98-107); Estimated GFR-MDRD 61; Glucose 103 mg/dL (83-110); Phosphorus 4.8 mg/dL (2.3-4.7); Sodium 141 mmol/L (136-145)
[2018-11-12] MEDS ORDERED: Sodium Chloride 0.9% 10 ML ONE (07:25)
[2018-11-12] MEDS: Folic Acid 1 MG TAB PO SCH (09:22)
[2018-11-12] MEDS: Magnesium Oxide 400 MG TAB PO SCH ×2 (09:22→20:55)
[2018-11-12] MEDS: Megestrol Acetate 40 MG TAB PO SCH (09:22)
[2018-11-12] MEDS: Losartan 25 MG TAB PO SCH ×2 (09:22→20:54)
[2018-11-12] MEDS: Carvedilol 3.125 MG TAB PO SCH ×2 (09:22→20:55)
[2018-11-12] MEDS: Apixaban 5 MG TAB PO SCH ×2 (09:22→20:54)
--- NOTE | 2018-11-12 12:21 | PDOC.PN ---
- Subjective Encounter Start Date: 11/12/18 Encounter Start Time: 18:49 Subjective: Seen and examined. Complained of lack of sleep last night. -: Ambien was discontinued due to confusion. More appropriate today - Objective Resuscitation Status - Order Detail: 11/09/18 18:38 Resuscitation Status Routine Resuscitation Status: FULL: Full Resuscitation Vital Signs & Weight: Vital Signs (12 hours) Temp Pulse Resp BP Pulse Ox 11/12/18 08:58 98.2 F 68 18 142/65 H 95 11/12/18 04:00 97.5 F L 63 20 131/61 96 Weight Admit Weight 124 lb 6.4 oz Weight 123 lb 12.8 oz I&O: 11/11/18 11/12/18 11/13/18 06:59 06:59 06:59 Intake Total 980 960 Output Total 1625 1580 Balance -645 -620 Result Diagrams: 11/10/18 06:14 11/12/18 05:00 Phys Exam - Physical Examination Constitutional: NAD thin elderly female in no distress HEENT: PERRLA, moist MMs Neck: no JVD, supple Respiratory: no wheezing, no rales, no rhonchi, clear to auscultation bilateral Cardiovascular: RRR Gastrointestinal: soft, non-tender, no distention, positive bowel sounds Musculoskeletal: no edema, pulses present Neurological: non-focal, moves all 4 limbs conscious and alert, oriented x3. Memory lapses noted Dx/Plan (1) Acute on chronic congestive heart failure Code(s): I50.9 - HEART FAILURE, UNSPECIFIED Status: Acute Qualifiers: Heart failure type: diastolic Qualified Code(s): I50.33 - Acute on chronic diastolic (congestive) heart failure (2) HTN (hypertension) Code(s): I10 - ESSENTIAL (PRIMARY) HYPERTENSION Status: Acute Comment: Control suboptimal. (3) Aortic aneurysm Code(s): I71.9 - AORTIC ANEURYSM OF UNSPECIFIED SITE, WITHOUT RUPTURE Status: Acute (4) Physical deconditioning Code(s): R53.81 - OTHER MALAISE Status: Acute (5) Acute encephalopathy Code(s): G93.40 - ENCEPHALOPATHY, UNSPECIFIED Status: Acute Comment: Etiology unclear. Acute/subacute CVA ruled out with CT head. Most likely due to ambien superimposed on sundowning and mild dementia (6) Aortic regurgitation Code(s): I35.1 - NONRHEUMATIC AORTIC (VALVE) INSUFFICIENCY Status: Acute (7) Protein-calorie malnutrition, moderate Code(s): E44.0 - MODERATE PROTEIN-CALORIE MALNUTRITION Status: Acute (8) Rheumatoid arthritis Code(s): M06.9 - RHEUMATOID ARTHRITIS, UNSPECIFIED Status: Acute (9) Osteoporosis Code(s): M81.0 - AGE-RELATED OSTEOPOROSIS W/O CURRENT PATHOLOGICAL FRACTURE Status: Acute - Plan change lasix to oral. -: Start melatonin for sleep. -: continue losartan and coreg for BP -: PT/OT to continue. anticipipate Home with Home health or SNF -: Case mgt consulted. Awaiting medical record from [facility] * .
--- NOTE | 2018-11-12 17:13 | PDOC.CTH ---
Cardiology Progress Note - Subjective The pt seen and examined. No overnight events. No cardiac complaints. - Objective Vital Signs Temp Pulse Resp BP Pulse Ox 11/12/18 16:31 98.5 F 68 18 144/67 H 96 11/12/18 12:38 98.2 F 69 18 164/75 H 95 11/12/18 08:58 98.2 F 68 18 142/65 H 95 Admit Weight 124 lb 6.4 oz Weight 123 lb 12.8 oz 11/11/18 11/12/18 11/13/18 06:59 06:59 06:59 Intake Total 980 960 Output Total 1625 1580 Balance -975 -178 - Physical Examination General/Neuro: other: (confused) Lungs: CTA (diminished at bases, Lt>Rt) Heart: RRR Abdomen: soft Extremities: other: (No edema) - Telemetry Telemetry Rhythm: SR - Labs Result Diagrams: 11/10/18 06:14 11/12/18 05:00 Troponin/CKMB Troponin I 0.047 ng/mL (< 0.028) H 11/10/18 06:14 - Assessment/Plan 1. Acute on Chronic Diastolic HF - stable with bblocker, ARB, and Lasix, which will be changed to PO 40mg qd from tomorrow 2. Prolong QT - Amiodarone was stopped; cont. to monitor on tele 3. HTN - stable 4. Post-op Afib - remains in SB/SR; Off Amiodarone 2/2 QT prolongation; cont. Eliquis 5. S/p ascending and descending aortic aneurysm repair in 08/2018 - waiting for med report from [facility]. MAR reviewed Pt. seen and eval. by me. I agree with the A/P by the CLINIC MGR. Overall deconditioned. RRR. Review of Systems - Review of Systems Constitutional: reports: no symptoms reported EENTM: reports: no symptoms reported Respiratory: reports: no symptoms reported Cardiac (ROS): reports: no symptoms reported ABD/GI: reports: no symptoms reported : reports: no symptoms reported Musculoskeletal: reports: no symptoms reported
[2018-11-12] MEDS: Atorvastatin Calcium 40 MG TAB PO SCH (20:54)
[2018-11-12] MEDS: Melatonin 3 MG TAB PO PRN (20:55)
[2018-11-13 07:00] LABS: #Eosinphils 0.1 thou/uL (0.0-0.7); #Lymphocytes 1.8 thou/uL (1.20-3.40); #Monocytes 0.7 thou/uL (0.11-0.59); #Neutrophils 5.4 thou/uL (1.40-6.50); %Basophils 0.5 % (0.0-1.0); %Eosinophils 1.1 % (0.0-10.0); %Lymphocytes 21.9 % (21.0-51.0); %Monocytes 8.8 % (0.0-10.0); %Neutrophils 67.7 % (42.0-75.0); Hemoglobin 12.4 g/dL (12.0-16.0); Mean Corpuscular HGB CONC 31.2 g/dL (32.0-36.0); Mean Corpuscular Hemoglobin 29.5 pg (27.0-31.0); Mean Corpuscular Volume 94.5 fL (78.0-98.0); Mean Platelet Volume 8.6 fL (7.4-10.4); Platelet Count 248 thou/uL (130-400); RBC Distribution Width 17.3 % (11.5-14.5); Red Blood Cell (RBC) Count 4.21 mill/uL (4.20-5.40)
[2018-11-13 07:07] LABS: Albumin 3.5 g/dL (3.4-4.8); Anion Gap 12 mmol/L (10-20); BUN (Urea Nitrogen) 35 mg/dL (9.8-20.1); BUN/Creatinine Ratio 38.04; Calc. Creatinine Clearance 42 mL/min (70-130); Carbon Dioxide 27 mmol/L (23-31); Chloride 105 mmol/L (98-107); Estimated GFR-MDRD 59; Glucose 103 mg/dL (83-110); Potassium 3.9 mmol/L (3.5-5.1); Sodium 140 mmol/L (136-145)
[2018-11-13] MEDS: Furosemide 40 MG TAB PO SCH (07:36)
[2018-11-13] MEDS: Losartan 25 MG TAB PO SCH ×2 (08:47→20:58)
[2018-11-13] MEDS: Apixaban 5 MG TAB PO SCH ×2 (08:47→20:58)
[2018-11-13] MEDS: Folic Acid 1 MG TAB PO SCH (08:47)
[2018-11-13] MEDS: Magnesium Oxide 400 MG TAB PO SCH ×2 (08:47→20:58)
[2018-11-13] MEDS: Carvedilol 3.125 MG TAB PO SCH ×2 (08:47→20:58)
[2018-11-13] MEDS: Megestrol Acetate 40 MG TAB PO SCH (08:51)
--- NOTE | 2018-11-13 12:49 | PDOC.CTH ---
Cardiology Progress Note - Subjective The pt seen and examined. No overnight events. No cardiac complaints. More alerted this AM. - Objective Vital Signs Temp Pulse Resp BP Pulse Ox 11/13/18 11:43 97.5 F L 69 17 117/57 L 93 L 11/13/18 07:29 98.1 F 63 18 164/71 H 95 11/13/18 04:00 97.2 F L 65 18 113/55 L 95 Admit Weight 124 lb 6.4 oz Weight 121 lb 11.2 oz 11/12/18 11/13/18 11/14/18 06:59 06:59 06:59 Intake Total 960 650 Output Total 1580 1440 Balance -620 -790 - Physical Examination General/Neuro: alert & oriented x3 Neck: no JVD present Lungs: CTA (diminished at bases) Heart: RRR Abdomen: soft Extremities: other: (No edema) - Telemetry Telemetry Rhythm: SR - Labs Result Diagrams: 11/13/18 06:37 11/14/18 05:25 Troponin/CKMB Troponin I 0.047 ng/mL (< 0.028) H 11/10/18 06:14 - Assessment/Plan 1. Acute on Chronic Diastolic HF - stable with bblocker, ARB, and Lasix, which will be changed to PO 40mg qd from tomorrow 2. Prolong QT - Amiodarone was stopped; cont. to monitor on tele 3. HTN - stable 4. Post-op Afib - remains in SB/SR; Off Amiodarone 2/2 QT prolongation; cont. Eliquis 5. S/p ascending and descending aortic aneurysm repair in 08/2018 - waiting for med report from [facility]. MAR reviewed Pt. seen and eval. by me. I agree with the A/P by the OPTICAL INSTRUMENT INSPECTOR. Overall deconditioned. RRR. Family discussing placement. gjm Review of Systems - Review of Systems Constitutional: reports: no symptoms reported EENTM: reports: no symptoms reported Respiratory: reports: no symptoms reported Cardiac (ROS): reports: no symptoms reported ABD/GI: reports: no symptoms reported : reports: no symptoms reported Musculoskeletal: reports: no symptoms reported
[2018-11-13] MEDS: Acetaminophen 325 MG TAB PO PRN ×2 (14:45→20:58)
--- NOTE | 2018-11-13 15:52 | PDOC.PN ---
- Subjective Encounter Start Date: 11/13/18 Encounter Start Time: 08:50 Subjective: Patient seen and examined. -: Slept well last night. -: no chest pain or fever. - Objective Resuscitation Status - Order Detail: 11/09/18 18:38 Resuscitation Status Routine Resuscitation Status: FULL: Full Resuscitation Vital Signs & Weight: Vital Signs (12 hours) Temp Pulse Pulse Pulse Resp BP BP 11/13/18 15:26 97.4 F L 60 16 11/13/18 13:54 60 65 135/64 134/60 11/13/18 11:43 97.5 F L 69 17 11/13/18 07:29 98.1 F 63 18 11/13/18 04:00 97.2 F L 65 18 BP Pulse Ox 11/13/18 15:26 92/54 L 94 L 11/13/18 13:54 11/13/18 11:43 117/57 L 93 L 11/13/18 07:29 164/71 H 95 11/13/18 04:00 113/55 L 95 Weight Admit Weight 124 lb 6.4 oz Weight 121 lb 11.2 oz I&O: 11/12/18 11/13/18 11/14/18 06:59 06:59 06:59 Intake Total 960 650 Output Total 1580 1440 Balance -620 -790 Result Diagrams: 11/13/18 06:37 11/13/18 06:37 Phys Exam - Physical Examination Constitutional: NAD HEENT: PERRLA, moist MMs Neck: no JVD, supple Respiratory: no wheezing, no rales, no rhonchi Cardiovascular: RRR Gastrointestinal: soft, non-tender, no distention, positive bowel sounds Musculoskeletal: no edema, pulses present Neurological: non-focal, moves all 4 limbs awake and conversation. memory lapses noted Dx/Plan (1) Acute on chronic congestive heart failure Code(s): I50.9 - HEART FAILURE, UNSPECIFIED Status: Acute Qualifiers: Heart failure type: diastolic Qualified Code(s): I50.33 - Acute on chronic diastolic (congestive) heart failure (2) HTN (hypertension) Code(s): I10 - ESSENTIAL (PRIMARY) HYPERTENSION Status: Acute Comment: Control suboptimal. (3) Aortic aneurysm Code(s): I71.9 - AORTIC ANEURYSM OF UNSPECIFIED SITE, WITHOUT RUPTURE Status: Acute (4) Physical deconditioning Code(s): R53.81 - OTHER MALAISE Status: Acute (5) Acute encephalopathy Code(s): G93.40 - ENCEPHALOPATHY, UNSPECIFIED Status: Acute Comment: Etiology unclear. Acute/subacute CVA ruled out with CT head. Most likely due to ambien superimposed on sundowning and mild dementia (6) Aortic regurgitation Code(s): I35.1 - NONRHEUMATIC AORTIC (VALVE) INSUFFICIENCY Status: Acute (7) Protein-calorie malnutrition, moderate Code(s): E44.0 - MODERATE PROTEIN-CALORIE MALNUTRITION Status: Acute (8) Rheumatoid arthritis Code(s): M06.9 - RHEUMATOID ARTHRITIS, UNSPECIFIED Status: Acute (9) Osteoporosis Code(s): M81.0 - AGE-RELATED OSTEOPOROSIS W/O CURRENT PATHOLOGICAL FRACTURE Status: Acute (10) Prolonged Q-T interval on ECG Code(s): R94.31 - ABNORMAL ELECTROCARDIOGRAM [ECG] [EKG] Status: Acute Comment: Patient was on amiodarone for unclear indication. Discontinued by cardiology - Plan Decrease lasicx to 40 daily. -: Continue other medication. -: Met patient daughters about patient condition and care plan. -: Discharge options were also discontinued including home health and SNF -: increase melatonin to 6 mg prn hs. Follow renal function * .
[2018-11-13] MEDS: Atorvastatin Calcium 40 MG TAB PO SCH (20:58)
[2018-11-13] MEDS: Melatonin 3 MG TAB PO PRN (21:06)
[2018-11-14 06:40] LABS: Albumin 3.4 g/dL (3.4-4.8); Anion Gap 14 mmol/L (10-20); BUN (Urea Nitrogen) 40 mg/dL (9.8-20.1); BUN/Creatinine Ratio 43.01; Calc. Creatinine Clearance 42 mL/min (70-130); Calcium 9.1 mg/dL (7.8-10.44); Carbon Dioxide 26 mmol/L (23-31); Chloride 104 mmol/L (98-107); Estimated GFR-MDRD 58; Glucose 94 mg/dL (83-110); Phosphorus 3.8 mg/dL (2.3-4.7); Potassium 3.6 mmol/L (3.5-5.1); Sodium 140 mmol/L (136-145)
[2018-11-14] MEDS: Apixaban 5 MG TAB PO SCH ×2 (10:23→10:24)
[2018-11-14] MEDS: Furosemide 40 MG TAB PO SCH (10:23)
[2018-11-14] MEDS: Magnesium Oxide 400 MG TAB PO SCH ×2 (10:24→20:53)
[2018-11-14] MEDS: Folic Acid 1 MG TAB PO SCH (10:24)
[2018-11-14] MEDS: Megestrol Acetate 40 MG TAB PO SCH (10:24)
[2018-11-14] MEDS: Losartan 25 MG TAB PO SCH ×2 (10:24→20:53)
[2018-11-14] MEDS: Carvedilol 3.125 MG TAB PO SCH ×2 (10:31→20:53)
[2018-11-14] MEDS: Acetaminophen 325 MG TAB PO PRN (12:46)
--- NOTE | 2018-11-14 14:26 | PDOC.CTH ---
Cardiology Progress Note - Subjective The pt seen and examined. No overnight events. No cardiac complaints. - Objective Vital Signs Temp Pulse Pulse Pulse Resp BP BP 11/14/18 11:40 97.5 F L 55 L 17 11/14/18 10:20 64 56 L 139/64 136/60 11/14/18 07:43 97.2 F L 63 17 11/14/18 04:00 97.7 F 58 L 16 BP Pulse Ox 11/14/18 11:40 100/55 L 98 11/14/18 10:20 11/14/18 07:43 140/63 97 11/14/18 04:00 122/58 L 96 Admit Weight 124 lb 6.4 oz Weight 123 lb 14.4 oz 11/13/18 11/14/18 11/15/18 06:59 06:59 06:59 Intake Total 650 920 Output Total 1440 500 Balance -790 420 - Physical Examination General/Neuro: alert & oriented x3 Neck: no JVD present Lungs: CTA (diminished at bases) Heart: RRR Abdomen: soft Extremities: other: (No edema) - Telemetry Telemetry Rhythm: SR - Labs Result Diagrams: 11/15/18 06:33 11/15/18 06:33 Troponin/CKMB Troponin I 0.047 ng/mL (< 0.028) H 11/10/18 06:14 - Assessment/Plan 1. Acute on Chronic Diastolic HF - stable with bblocker, ARB, and Lasix PO; 2. Prolong QT - Amiodarone was stopped; cont. to monitor on tele 3. HTN - stable 4. Post-op Afib - remains in SB/SR; Off Amiodarone 2/2 QT prolongation; cont. Eliquis 5. S/p ascending and descending aortic aneurysm repair in 08/2018 - waiting for med report from [facility]. MAR reviewed Pt. seen and evcal. by me. I agree with the A/P by the CAREER DEVELOPMENT COUNSELOR. Chest clear. RRR. Still maintaining NSR off amiodarone ( this was held due to prolonged QT) .Probable transfer to [place] or assisted in next 1-2 days. Review of Systems - Review of Systems Constitutional: reports: no symptoms reported EENTM: reports: no symptoms reported Respiratory: reports: no symptoms reported Cardiac (ROS): reports: no symptoms reported ABD/GI: reports: no symptoms reported : reports: no symptoms reported Musculoskeletal: reports: no symptoms reported
--- NOTE | 2018-11-14 14:32 | PDOC.PN ---
- Subjective Encounter Start Date: 11/14/18 Encounter Start Time: 09:30 Subjective: No new problem -: Denied SOB, fever or cough. -: Still with some confusion. - Objective Resuscitation Status - Order Detail: 11/09/18 18:38 Resuscitation Status Routine Resuscitation Status: FULL: Full Resuscitation Vital Signs & Weight: Vital Signs (12 hours) Temp Pulse Pulse Pulse Resp BP BP 11/14/18 11:40 97.5 F L 55 L 17 11/14/18 10:20 64 56 L 139/64 136/60 11/14/18 07:43 97.2 F L 63 17 11/14/18 04:00 97.7 F 58 L 16 BP Pulse Ox 11/14/18 11:40 100/55 L 98 11/14/18 10:20 11/14/18 07:43 140/63 97 11/14/18 04:00 122/58 L 96 Weight Admit Weight 124 lb 6.4 oz Weight 123 lb 14.4 oz I&O: 11/13/18 11/14/18 11/15/18 06:59 06:59 06:59 Intake Total 650 920 Output Total 1440 500 Balance -790 420 Result Diagrams: 11/13/18 06:37 11/14/18 05:25 Phys Exam - Physical Examination Constitutional: NAD HEENT: PERRLA, moist MMs Neck: no JVD, supple Respiratory: no wheezing, no rales, no rhonchi Cardiovascular: RRR soft systolic murmur noted Gastrointestinal: soft, non-tender, no distention, positive bowel sounds Musculoskeletal: no edema, pulses present Neurological: non-focal, moves all 4 limbs Awake and oriented x3 but with some memory lapses and confusion Dx/Plan (1) Acute on chronic congestive heart failure Code(s): I50.9 - HEART FAILURE, UNSPECIFIED Status: Acute Qualifiers: Heart failure type: diastolic Qualified Code(s): I50.33 - Acute on chronic diastolic (congestive) heart failure (2) HTN (hypertension) Code(s): I10 - ESSENTIAL (PRIMARY) HYPERTENSION Status: Acute Comment: Control has improved with medication adjustmemnt (3) Aortic aneurysm Code(s): I71.9 - AORTIC ANEURYSM OF UNSPECIFIED SITE, WITHOUT RUPTURE Status: Acute (4) Physical deconditioning Code(s): R53.81 - OTHER MALAISE Status: Acute (5) Acute encephalopathy Code(s): G93.40 - ENCEPHALOPATHY, UNSPECIFIED Status: Acute Comment: Etiology unclear. Acute/subacute CVA ruled out with CT head. Most likely due to ambien superimposed on sundowning and mild dementia (6) Aortic regurgitation Code(s): I35.1 - NONRHEUMATIC AORTIC (VALVE) INSUFFICIENCY Status: Acute (7) Protein-calorie malnutrition, moderate Code(s): E44.0 - MODERATE PROTEIN-CALORIE MALNUTRITION Status: Acute (8) Rheumatoid arthritis Code(s): M06.9 - RHEUMATOID ARTHRITIS, UNSPECIFIED Status: Acute (9) Osteoporosis Code(s): M81.0 - AGE-RELATED OSTEOPOROSIS W/O CURRENT PATHOLOGICAL FRACTURE Status: Acute (10) Prolonged Q-T interval on ECG Code(s): R94.31 - ABNORMAL ELECTROCARDIOGRAM [ECG] [EKG] Status: Acute Comment: Patient was on amiodarone for unclear indication. Discontinued by cardiology - Plan Continue current medications. -: Awaiting medical record from [facility]. -: Awaiting SNF placement. -: Continue PT/OT. Need for complaince with PT/OT discussed with patient/rela -: Continue oral supplement * .
[2018-11-14] MEDS: Atorvastatin Calcium 40 MG TAB PO SCH (20:52)
[2018-11-14] MEDS: Melatonin 3 MG TAB PO PRN (20:53)
[2018-11-14] MEDS ORDERED: Apixaban 5 MG TAB PO SCH (21:00)
[2018-11-15 07:06] LABS: Hemoglobin 12.2 g/dL (12.0-16.0); Platelet Count 235 thou/uL (130-400)
[2018-11-15 07:28] LABS: Albumin 3.3 g/dL (3.4-4.8); Anion Gap 10 mmol/L (10-20); BUN (Urea Nitrogen) 39 mg/dL (9.8-20.1); BUN/Creatinine Ratio 44.83; Calc. Creatinine Clearance 45 mL/min (70-130); Calcium 8.8 mg/dL (7.8-10.44); Carbon Dioxide 30 mmol/L (23-31); Chloride 104 mmol/L (98-107); Estimated GFR-MDRD 62; Glucose 94 mg/dL (83-110); Phosphorus 3.6 mg/dL (2.3-4.7); Potassium 3.7 mmol/L (3.5-5.1); Sodium 140 mmol/L (136-145)
--- NOTE | 2018-11-15 08:57 | PDOC.CTH ---
Cardiology Progress Note - Subjective The pt seen and examined. No overnight events. No cardiac complaints. - Objective Vital Signs Temp Pulse Resp BP Pulse Ox 11/15/18 03:45 98.3 F 57 L 18 113/54 L 97 11/14/18 23:35 98.4 F 55 L 16 127/56 L 97 Admit Weight 124 lb 6.4 oz Weight 123 lb 14.4 oz 11/14/18 11/15/18 11/16/18 06:59 06:59 06:59 Intake Total 920 1160 Output Total 500 600 Balance 420 560 - Physical Examination General/Neuro: other: (intermittent confusion) Lungs: CTA (diminished at bases) Heart: RRR Abdomen: soft Extremities: other: (No edema) - Telemetry Telemetry Rhythm: SR - Labs Result Diagrams: 11/15/18 06:33 11/15/18 06:33 Troponin/CKMB Troponin I 0.047 ng/mL (< 0.028) H 11/10/18 06:14 - Assessment/Plan 1. Acute on Chronic Diastolic HF - stable with bblocker, ARB, and Lasix PO; 2. Prolong QT - Amiodarone was stopped; cont. to monitor on tele 3. HTN - stable 4. Post-op Afib - remains in SB/SR; Off Amiodarone 2/2 QT prolongation; cont. Eliquis 5. S/p ascending and descending aortic aneurysm repair in 08/2018 - waiting for med report from [facility]. CATALINA reviewed Pt. seen and eval. by me. I agree with the A/P by the RRT.She is maintaining NSR. I imagine that she had periop Afib. and this is why the amiodarone was initiated. We have not received the records from [facility]. If she develops Atrial fibrillation we can consider Multaq of just rate control and OAC. gjm Review of Systems - Review of Systems Constitutional: reports: weakness EENTM: reports: no symptoms reported Respiratory: reports: no symptoms reported Cardiac (ROS): reports: no symptoms reported ABD/GI: reports: no symptoms reported : reports: no symptoms reported Musculoskeletal: reports: no symptoms reported
[2018-11-15] MEDS: Losartan 25 MG TAB PO SCH (10:35)
[2018-11-15] MEDS: Furosemide 40 MG TAB PO SCH (10:35)
[2018-11-15] MEDS: Folic Acid 1 MG TAB PO SCH (10:36)
[2018-11-15] MEDS: Carvedilol 3.125 MG TAB PO SCH (10:36)
[2018-11-15] MEDS: Magnesium Oxide 400 MG TAB PO SCH (10:36)
[2018-11-15] MEDS: Megestrol Acetate 40 MG TAB PO SCH (10:36)
[2018-11-15] MEDS: Apixaban 5 MG TAB PO SCH (10:36)
[2018-11-15 12:12] VITALS: BMI 20.6
--- NOTE | 2018-11-15 14:34 | DIS ---
DATE OF ADMISSION: 11/09/2018 DATE OF DISCHARGE: 11/15/2018 DISCHARGE DIAGNOSES: 1. [id number] diastolic heart failure. 2. Prolonged QT. 3. Hypertension. 4. Aortic aneurysm, status post recent repair of ascending and descending aortic aneurysm. 5. Acute metabolic and toxic encephalopathy. 6. Moderate protein calorie malnutrition. 7. Physical deconditioning. 8. History of rheumatoid arthritis. 9. History of osteoporosis. 10. Recurrent falls. 11. Presumed postoperative atrial fibrillation. 12. Chronic anticoagulation with Eliquis. 13. History of venous thrombosis. CONSULTS: 1. Cardiology. 2. Electrophysiology. HOSPITAL COURSE: An 83-year-old female with past medical history significant for hypertension; aortic aneurysm status post recent repair; as well as coronary artery disease, status post recent stent placement, who was brought in by EMS due to worsening shortness of breath. The patient also reportedly had intermittent confusion as well as falls at home prior to presentation. The patient was found to have elevated bilateral leg swelling as well as elevated BNP consistent with [id number] diastolic heart failure, which was confirmed by echocardiogram. History is not complete as we do not know the indication for amiodarone and chronic anticoagulation. Several attempts at getting medical record from [facility] remain futile. Cardiology consult was obtained due to [id number] heart failure and patient was found to have prolonged QT necessitating consultation by adjunct philosophy faculty, who recommended discontinuation of amiodarone. The patient was treated with IV diuretics with improvement of volume status and resolution of shortness of breath. Hospital course was complicated by development of altered mental status, which was waxing and waning. This predated hospital admission and this was felt to be related to medication as well as possible hypoxia from CHF exacerbation. Ambien, Neurontin, and opioid narcotics were discontinued and mental status improved. The patient also was found to have generalized weakness and was seen by Physical and Occupational therapy. Oral intake was also noted to be poor and the patient post diuresis was noted to have had significant weight loss as well as muscle wasting consistent with moderate protein calorie malnutrition, hence was started on oral supplementation. PHYSICAL EXAMINATION: VITAL SIGNS: Temperature 98.3, pulse 57, respiratory rate 18, SpO2 of 97% on room air, and blood pressure is 113/54. GENERAL: Chronically ill-looking elderly female in no obvious distress. Afebrile. Anicteric. Acyanotic. HEENT: Normocephalic and atraumatic. Pupils are equal and reacting to light. NECK: Supple. Nontender with full range of motion. CARDIOVASCULAR: Regular rhythm and rate with normal heart sounds. RESPIRATORY: Good air entry bilaterally with no crackle or rhonchi. GI: Abdomen is full, soft, nontender, and nondistended with normal bowel sounds. EXTREMITIES: Grossly normal looking, atraumatic with no edema or erythema. NEUROLOGIC: Conscious and alert, oriented x3 with appropriate mental status. Cranial nerves 2 through 12 are intact. The patient moves all extremities, but weakly. DISCHARGE CONDITION: Improved. FOLLOWUP: 1. Follow up with PCP in 1 week. 2. Follow up with Cardiology, Dr. Villa in 1 week. DISCHARGE MEDICATIONS: 1. Simethicone 80 mg q.6 p.r.n. 2. Fosamax 70 mg every 7 days. 3. Eliquis 5 mg p.o. b.i.d. 4. Aspirin 81 mg p.o. daily. 5. Lipitor 40 mg p.o. at bedtime. 6. Magnesium 400 mg p.o. daily. 7. Megace 40 mg p.o. daily. 8. Methotrexate 12.5 mg p.o. every 7 days. 9. Potassium chloride 10 mEq p.o. daily. 10. Restasis eyedrops one drop each eye b.i.d. 11. Tylenol 650 mg p.o. q.6 p.r.n. for pain. 12. Carvedilol 3.125 mg p.o. b.i.d. 13. Folic acid 1 mg p.o. daily. 14. Lasix 40 mg p.o. daily. 15. Losartan 25 mg p.o. b.i.d. 16. Melatonin 6 mg p.o. daily at bedtime. Of note, the patient was taken off Neurontin, Tylenol 3, and Ambien as these were felt to be contributing to her confusion. Also note that amiodarone was discontinued due to DC prolongation. TIME SPENT: This discharge took more than 40 minutes. Job ID: [id number]
[2018-11-15 20:14] VITALS: BP 128/71; TEMP 97.8
== END 2018-11-15 16:20 | DRG 291 ==
LOC: ERS 13:08 → 2NO 16:31
PROVIDERS: ADMIT Internal Medicine Nephrology; ATTEND Internal Medicine Nephrology
DX: I11.0 Hypertensive heart disease with heart failure (principal); G93.41 Metabolic encephalopathy; G92 Toxic encephalopathy; E44.0 Moderate protein-calorie malnutrition; I25.10 Atherosclerotic heart disease of native coronary artery without angina pectoris; M06.9 Rheumatoid arthritis, unspecified; Z96.643 Presence of artificial hip joint, bilateral; Z96.653 Presence of artificial knee joint, bilateral; R29.6 Repeated falls; I50.33 Acute on chronic diastolic (congestive) heart failure; M81.0 Age-related osteoporosis without current pathological fracture; I35.1 Nonrheumatic aortic (valve) insufficiency; I45.81 Long QT syndrome; I48.91 Unspecified atrial fibrillation; Z79.01 Long term (current) use of anticoagulants; Z68.20 Body mass index [BMI] 20.0-20.9, adult; Z79.82 Long term (current) use of aspirin; Z79.899 Other long term (current) drug therapy; Z90.710 Acquired absence of both cervix and uterus; Z88.8 Allergy status to other drugs, medicaments and biological substances; Z95.5 Presence of coronary angioplasty implant and graft; Z79.83 Long term (current) use of bisphosphonates; R09.02 Hypoxemia; T42.6X5A Adverse effect of other antiepileptic and sedative-hypnotic drugs, initial encounter; T40.2X5A Adverse effect of other opioids, initial encounter
CPT/HCPCS: 36415; 70450; 71045; 80053; 80069; 81001; 83735; 83880; 84484; 85014; 85018; 85025; 85049; 93005; 93306; 93798; 96374; 96376; J0360; J1940; J2060; J8610; S0179